=== PATIENT | female | born 1995 | race Caucasian/White ===

== ENCOUNTER 2018-06-10 13:06 | Outpatient (CLI) | payer OTHER, MEDICAID ==
[~2018-06-10] VITALS: Ht 154.9 cm; Wt 54.6 kg
[2018-06-10 13:15] VITALS: BP 116/60; Ht 154.9 cm; Wt 54.6 kg
[2018-06-10 13:16] VITALS: BP 116/60
[2018-06-10] MEDS ORDERED: PREN1TAB71 PO (13:18)
--- NOTE | 2018-06-10 22:08 | QN ---
Documentation Comment 22 years old -0-0-1 with single intrauterine at 33 weeks and 4 days complaining of decreased movement. She denies nausea, vomiting, shortness of breath, chest pain, headache, visual changes, vaginal bleeding or LOF. -FHR: No sign of metabolic acidosis- Category I -Contractions: None -Ultrasound performed: MARBELLA 7.2, BPP 8 out of 8 -Follow-up in 3 days with NST and MARBELLA -Symptoms and sign of labor, preeclampsia, kick count discussed with patient, she voiced understanding. All of her questions answered. -Patient was discharged home in stable condition with the appropriate discharge instructions provided. I would like patient to have close follow-up with her [facility] physician or outpatient clinic in 1-2 days or return to triage for worsening symptoms or any other urgent concerns. DARIO MCFADDEN Jun 10, 2018 22:07
== END 2018-06-10 15:50 | disposition home or self-care (01) ==
LOC: L-D 13:06 → OBT 13:06
PROVIDERS: ATTEND Obstetrics & Gynecology
DX: O36.8130 Decreased fetal movements, third trimester, not applicable or unspecified (principal); Z3A.33 33 weeks gestation of pregnancy
CPT/HCPCS: 76818; G0463

== ENCOUNTER 2018-06-12 12:32 | Outpatient (CLI) | payer OTHER, MEDICAID ==
[~2018-06-12] VITALS: Ht 154.9 cm; Wt 54.2 kg
[~2018-06-12 12:32] MED LIST: PREN1TAB71 PO
[2018-06-12 13:15] VITALS: BP 100/59; PULSE 79; Ht 154.9 cm; Wt 54.2 kg
--- NOTE | 2018-06-12 18:45 | TRIAGE ---
OB Triage Datetime Report Generated by CPN: 06/12/2018 18:45 Datetime: 06/12/2018 14:39 Stage of : OB Triage Datetime: 06/12/2018 14:13 Labor Evaluation Frequency: 0 Monitor Mode: External Pattern: Normal: <= 5 Contractions in 10 Minutes Resting Tone [place]: Relaxed Heart Rate FHR Baseline Rate: 135 Monitor Mode: External US Variability: Moderate 6-25 bpm Accelerations: 10X10 Decelerations: None Category: Category I Pain Assessment Pain Scale: 4 Pain Presence: Intermittent Pain Type: Cramping Pain Location: Perineum Pain Goal: 3 Pain Relief Measures: Comfort Measures Datetime: 06/12/2018 13:25 Stage of : OB Triage Datetime: 06/12/2018 13:08 Stage of : OB Triage Assessment Type: Triage Maternal Assessment Level of Consciousness: Fully Conscious DTR's/Clonus: DTRs 2+; No Clonus Headache: Denies Blurred Vision: No Respiratory Effort: Unlabored; Regular Rhythm; Equal Expansion Breath Sounds, Left: Clear and Equal Breath Sounds, Right: Clear and Equal Nausea/Vomiting: Denies RUQ Epigastric Pain: Denies Facial Edema: None Temperature Route: Axillary Fall Risk Assessment History of Falling: (0) No Secondary Diagnosis: (0) No Ambulatory Aid: (0) Bedrest/Nurse Assist IV Therapy: (0) No Gait: (0) Normal/Bedrest/Immobile Mental Status: (0) Oriented to Own Ability Fall Score: 0 Fall Risk Score Definition: No Risk: No action required Labor Evaluation Frequency: 0 Monitor Mode: External Pattern: Normal: <= 5 Contractions in 10 Minutes Resting Tone [place]: Relaxed Heart Rate FHR Baseline Rate: 140 Monitor Mode: External US Variability: Moderate 6-25 bpm Accelerations: 10X10 Decelerations: None Category: Category I Pain Assessment Pain Scale: 4 Pain Presence: Intermittent Pain Type: Cramping Pain Location: Back; Perineum Pain Goal: 3 Pain Relief Measures: Comfort Measures Datetime: 06/12/2018 13:06 Time of Arrival: 06/12/2018 12:23 EGA: 33.6 Arrived By: Ambulatory Arrived From: Dr. Osoiro Chief Complaint: REFERRED FROM CLINIC FOR DFM, STATES CRAMPING LAST 2 DAYS INTERMITTENTLY, DENIES B LEEDING OR LEAKING. HX OF LOW MARBELLA SEES DR. KIRKPATRICK WEEKLY Movement: Decreased Contractions: Occasional Rupture of Membranes: Denies Vaginal Bleeding: None Vaginal Discharge: Denies Recent Sexual Intercouse: Denies Abdominal Trauma: Not Applicable Patient Complaints: Cramping Time Provider Notified: 06/12/2018 13:25 Provider Notified: SALCEDA Initial Plan: MONITOR, BPP EFW Datetime: 06/10/2018 13:12 Stage of : OB Triage Assessment Type: Triage Time of Arrival: 06/10/2018 12:52 EGA: 33.4 Arrived By: Ambulatory Arrived From: Dr. Osorio Chief Complaint: sent from clinic for dfm Movement: Decreased Contractions: Denies/Absent Rupture of Membranes: Denies Vaginal Bleeding: None Vaginal Discharge: Denies Recent Sexual Intercouse: Denies Abdominal Trauma: Not Applicable Patient Complaints: Other Time Provider Notified: 06/10/2018 15:00 Provider Notified: DR. MEDINA Initial Plan: efm nst bpp Maternal Assessment Level of Consciousness: Fully Conscious DTR's/Clonus: DTRs 2+; No Clonus Headache: Denies Blurred Vision: No Respiratory Effort: Unlabored; Regular Rhythm; Equal Expansion Breath Sounds, Left: Clear and Equal Breath Sounds, Right: Clear and Equal Nausea/Vomiting: Denies RUQ Epigastric Pain: Denies Lower Extremities Edema: None Degree: None Upper Extremities Edema: None Facial Edema: None Temperature Route: Oral Fall Risk Assessment History of Falling: (0) No Secondary Diagnosis: (0) No Ambulatory Aid: (0) Bedrest/Nurse Assist IV Therapy: (0) No Gait: (0) Normal/Bedrest/Immobile Mental Status: (0) Oriented to Own Ability Fall Score: 0 Fall Risk Score Definition: No Risk: No action required Monitor Mode: External Monitor Mode: External US Pain Assessment Pain Scale: 0 Pain Presence: None/Denies
--- NOTE | 2018-07-05 15:19 | PREOPHP ---
DATE OF ADMISSION: 06/12/2018 HISTORY OF PRESENT ILLNESS: This is a 22-year-old lady, 2, para 1, EDC 07/25/2018, at 33 and 6/7 weeks, admitted to labor and delivery area for observation. She was having lower abdominal pain s and low back pains. She had care in my [place] office and the care was uneventfu l. She had 1 previous section. She is for a repeat . PAST PERSONAL HISTORY: No history of diabetes, TB, asthma. ALLERGIES: NO ALLERGIES. SOCIAL HISTORY: The patient does not smoke. She does not drink. MEDICATIONS: She does not take any drugs except her iron and vitamins. GYNECOLOGIC HISTORY: She had menarche at the age of 12, every 28 days interval, 3 to 4 days duration , and moderate in amount. FAMILY HISTORY: Noncontributory. OBSTETRICAL HISTORY: She is 2, para 1. Her first delivery was in 2017 by for sepideh caputo. REVIEW OF SYSTEMS: CARDIOVASCULAR: No chest pains. RESPIRATORY: No cough. GASTROINTESTINAL: No diarrhea. GENITOURINARY: No dysuria. PHYSICAL EXAMINATION: GENERAL: Reveals a conscious, coherent lady and in no acute distress. VITAL SIGNS: Her blood pressure 120/80, pulse rate 80 per minute, respirations 16 per minute. BREASTS, HEART AND LUNGS: Within normal limits. ABDOMEN: Soft. No organomegaly. Fundic height 33 cm. heart tones 140 per minute. PELVIC: Revealed the cervix to be closed, station floating in breech presentation with the bag of wa ter intact. EXTREMITIES: No pedal edema. ADMITTING DIAGNOSES: A 33 and 6/7 weeks intrauterine , rule out labor and breech presentati on, 1 previous section. The patient was observed in the hospital and after a few hours of o bservation, the patient felt good. No contractions and she wanted to go home, so she was discharged home on general diet and activity was restricted. She was counseled. She was instructed. She was t old to come back to the hospital if there is any problem or concern. FINAL DIAGNOSIS: A 33 and 6/7 weeks intrauterine , with 1 previous and dehydratio n in false labor. Dictated By: NAM CHRISTINA/ALDO Conf#: [id number] DID#: [id number]
== END 2018-06-12 14:54 | disposition home or self-care (01) ==
LOC: OBT 12:32 → L-D 12:49 → OBT 14:54
PROVIDERS: ATTEND Obstetrics & Gynecology
DX: O47.03 False labor before 37 completed weeks of gestation, third trimester (principal); Z3A.33 33 weeks gestation of pregnancy
CPT/HCPCS: 76815; 76818; G0463

== ENCOUNTER 2018-06-15 11:31 | Outpatient (CLI) | payer OTHER, MEDICAID ==
[~2018-06-15] VITALS: Ht 154.9 cm; Wt 53.8 kg
[2018-06-15 11:36] VITALS: Ht 154.9 cm; Wt 53.8 kg
--- NOTE | 2018-06-15 12:34 | PN ---
Triage Information Date/Time Reason for visit: Hx of Decreased movments Weeks of Gestation 34+ /Para n/a Diabetes: none Hypertention: none Objective Heart Rate: 140's Contractions: None Disposition: Discharge Assessment/Plan BPP 11/26 +FM Questions answered Fallow up with provider Precautions discussed MICHELLE PHILLIPS M.D. Jun 15, 2018 12:34
== END 2018-06-15 12:30 | disposition home or self-care (01) ==
LOC: L-D 11:31 → OBT 11:31
PROVIDERS: ATTEND Obstetrics & Gynecology
DX: O36.8130 Decreased fetal movements, third trimester, not applicable or unspecified (principal); Z3A.34 34 weeks gestation of pregnancy
CPT/HCPCS: 76818; Z7500; G0463

== ENCOUNTER 2018-06-18 09:03 | Inpatient (IN) | payer OTHER, MEDICAID ==
[~2018-06-18] VITALS: Ht 154.9 cm; Wt 55.0 kg
[2018-06-18 11:04] VITALS: Ht 154.9 cm; Wt 55.0 kg
[2018-06-18] MEDS: BETAMET NA PHOS/AC(6 MG/ML) 2 ML INJ SYG IM SCH (14:14)
[2018-06-18] MEDS: LACTATED RINGER'S 1,000 ML IV SCH ×2 (14:14→18:32)
[2018-06-19] MEDS: LACTATED RINGER'S 1,000 ML IV SCH ×3 (02:48→21:17)
[2018-06-19] MEDS: BETAMET NA PHOS/AC(6 MG/ML) 2 ML INJ SYG IM SCH (12:16)
[2018-06-19] MEDS: PRENATAL VITAMIN PO SCH (12:16)
[2018-06-20] MEDS: LACTATED RINGER'S 1,000 ML IV SCH (04:47)
[2018-06-20] MEDS: PRENATAL VITAMIN PO SCH (08:55)
--- NOTE | 2018-06-21 20:45 | PREOPHP ---
DATE OF ADMISSION: 06/18/2018 HISTORY OF PRESENT ILLNESS: This is a 22-year-old lady, 2, para 1, EDC 07/25/2018 at 34 and 5/7 weeks , admitted to labor and delivery area. The perinatologist, Dr. Cervantes for IV hydration. She had an NST done in his office and the MARBELLA was 6.1, so he advised the patient to be admitted for IV hydration to be given betamethasone, and after 48 hours from admission, which is 24 hours after the last betamethasone is given, to repeat her MRABELLA. She was having NST done in his office due to borderline oligohydramnios before. PAST MEDICAL HISTORY: Patient has a history of a uterine septum. PAST SURGICAL HISTORY: She has a history of previous placental abruption. PAST PERSONAL HISTORY: No history of TB, asthma, nor allergy. SOCIAL HISTORY: Patient does not smoke. She does not drink. MEDICATIONS: She does not take any drugs except her iron and vitamins. GYNECOLOGIC HISTORY: She had menarche at the age of 12, every 28 days interval, 3 to 4 days duration, and moderate in amount. FAMILY HISTORY: Noncontributory. She is 2, para 1. Her first delivery was in 2017 by , for breech and abruptio placenta. REVIEW OF SYSTEMS: CARDIOVASCULAR: No chest pains. RESPIRATORY: No cough. GASTROINTESTINAL: No diarrhea, no vomiting. GENITOURINARY: No dysuria. PHYSICAL EXAMINATION: GENERAL: Reveals a conscious, coherent lady and in not acute distress. VITAL SIGNS: Her blood pressure 120/80, pulse rate 80 per minute, respirations 16 per minute. BREASTS, HEART AND LUNGS: Within normal limits. ABDOMEN: Soft. Fundic height 33 cm. heart tones 140 per minute. PELVIC: Revealed the cervix to be closed. EXTREMITIES: No pedal edema. ADMITTING DIAGNOSIS: A 34 and 5/7 weeks intrauterine with borderline oligohydramnios. PLAN: The patient was planned to have the above to have IV hydration to be given betamethasone, and after the 24 hours after the last dose of betamethasone, the MARBELLA was to be repeated as the plans were explained to the patient and she understood everything totally. The risks, benefits and alternatives were discussed with her as well. Dictated By: NAM CHRISTINA/ALDO Conf#: [id number] [facility]#: [id number] MTDD
--- NOTE | 2018-06-21 21:05 | PN ---
DATE: 06/19/2018 SUBJECTIVE: The patient feels good. No contractions, no complaints. OBJECTIVE: VITAL SIGNS: Afebrile. Vital signs stable. ABDOMEN: Soft. heart tones normal. No vaginal bleeding. EXTREMITIES: No calf tenderness. ASSESSMENT: A 34 and 6/7 weeks intrauterine with borderline oligohydramnios. PLAN: The patient was planned to have a repeat MARBELLA tomorrow. The plans were explained to the patien t and she understood everything totally. Dictated By: NAM CHRISTINA/NTS Conf#: [id number] DID#: [id number]
--- NOTE | 2018-06-21 21:16 | DS ---
DATE OF ADMISSION: 06/18/2018 DATE OF DISCHARGE: 06/20/2018 HISTORY OF PRESENT ILLNESS: See dictated history and physical. PHYSICAL EXAMINATION: See dictated history and physical. ADMITTING DIAGNOSIS: A 34 and 5/7 weeks intrauterine with borderline oligohydramnios. HOSPITAL COURSE: The patient was planned to have IV hydration for 48 hours and to be given betamethasone on admission and to be repeated in 24 hours, which was done, and the patient did well during the observation. heart tones was normal, and on 06/20/2018, she has done on the repeat ultrasound and the MARBELLA was 8.2. So, she was discharged home in good and stable condition and general diet and activity was restricted. She was counseled. She was instructed. She was told to keep appointment to see Dr. Cervantes. FINAL DIAGNOSIS: A 35 weeks IUP with borderline oligohydramnios. Dictated By: NAM CHRISTINA/ALDO Conf#: [id number] DID#: [id number] NEERAJ
== END 2018-06-20 10:40 | disposition home or self-care (01) | DRG 833 ==
LOC: PP1 09:03
PROVIDERS: ADMIT Obstetrics & Gynecology; ATTEND Obstetrics & Gynecology
DX: O41.8X30 Other specified disorders of amniotic fluid and membranes, third trimester, not applicable or unspecified (principal); Z3A.34 34 weeks gestation of pregnancy
CPT/HCPCS: 76815; 80053; 85025; J0702; J7120

== ENCOUNTER 2018-06-21 18:26 | Inpatient (IN) | payer OTHER, MEDICAID ==
[~2018-06-21] VITALS: Ht 154.9 cm; Wt 56.2 kg
[2018-06-21 18:37] VITALS: Ht 154.9 cm; Wt 56.2 kg
--- NOTE | 2018-06-21 19:28 | TRIAGE ---
OB Triage Datetime Report Generated by CPN: 06/21/2018 19:27 Datetime: 06/21/2018 18:57 Maternal Assessment Level of Consciousness: Fully Conscious DTR's/Clonus: DTRs 1+ Headache: Denies Blurred Vision: No Respiratory Effort: Unlabored Breath Sounds, Left: Clear and Equal Breath Sounds, Right: Clear and Equal Nausea/Vomiting: Denies RUQ Epigastric Pain: Denies Facial Edema: None Labor Evaluation Frequency: NONE Monitor Mode: External Resting Tone Covel: Relaxed Heart Rate FHR Baseline Rate: 135 Monitor Mode: External US Variability: Moderate 6-25 bpm Accelerations: 15X15 Decelerations: None Category: Category I Pain Assessment Pain Scale: 0 Pain Presence: None/Denies Pain Type: N/A Pain Goal: 3 Vaginal Exam Membrane Status: Intact Datetime: 06/21/2018 18:35 Assessment Type: Triage Maternal Assessment Level of Consciousness: Fully Conscious DTR's/Clonus: DTRs 2+; No Clonus Headache: Denies Blurred Vision: No Respiratory Effort: Unlabored; Regular Rhythm; Equal Expansion Breath Sounds, Left: Clear and Equal Breath Sounds, Right: Clear and Equal Nausea/Vomiting: Denies RUQ Epigastric Pain: Denies Lower Extremities Edema: None Degree: None Upper Extremities Edema: None Degree: None Facial Edema: None Fall Risk Assessment History of Falling: (0) No Secondary Diagnosis: (0) No Ambulatory Aid: (0) Bedrest/Nurse Assist IV Therapy: (0) No Gait: (0) Normal/Bedrest/Immobile Mental Status: (0) Oriented to Own Ability Fall Score: 0 Fall Risk Score Definition: No Risk: No action required Datetime: 06/21/2018 18:16 Time of Arrival: 06/21/2018 18:16 EGA: 35.1 Arrived By: Ambulatory Arrived From: Home Chief Complaint: PT CAME IN TODAY C/O LEAKING FLUID FOR THE PAST HOUR. STATES THAT IS CLEAR AND AMRITA T SHE WAS AT HER BABY SHOWER WHEN THIS HAPPENDED Movement: Present Contractions: Denies/Absent Rupture of Membranes: Unsure Vaginal Bleeding: None Vaginal Discharge: Denies Recent Sexual Intercouse: Denies Abdominal Trauma: Not Applicable Patient Complaints: Other Additional Patient Complaints: NONE Time Provider Notified: 06/21/2018 18:42 Provider Notified: SALCEDA Initial Plan: MONITOR, ROM PLUS, BPP Datetime: 06/20/2018 10:40 Stage of : Antepartum Datetime: 06/20/2018 10:08 Comments: monitors off Datetime: 06/20/2018 10:00 Stage of : Antepartum Labor Evaluation Frequency: 0 Monitor Mode: External Heart Rate FHR Baseline Rate: 125 Monitor Mode: External US Variability: Moderate 6-25 bpm Accelerations: 15X15 Decelerations: None Category: Category I Pain Assessment Pain Scale: 0 Pain Presence: None/Denies Pain Type: N/A Vaginal Exam Membrane Status: Intact Datetime: 06/20/2018 09:00 Labor Evaluation Frequency: 0 Monitor Mode: External Heart Rate FHR Baseline Rate: 130 Monitor Mode: External US Variability: Moderate 6-25 bpm Accelerations: 15X15 Decelerations: None Category: Category I Pain Assessment Pain Scale: 0 Pain Presence: None/Denies Pain Type: N/A Vaginal Exam Membrane Status: Intact Datetime: 06/20/2018 08:08 Assessment Type: Ongoing Assessment Maternal Assessment Level of Consciousness: Fully Conscious DTR's/Clonus: DTRs 2+; No Clonus Headache: Denies Blurred Vision: No Respiratory Effort: Unlabored; Regular Rhythm; Equal Expansion Breath Sounds, Left: Clear and Equal Breath Sounds, Right: Clear and Equal Nausea/Vomiting: Denies RUQ Epigastric Pain: Denies Lower Extremities Edema: None Degree: None Upper Extremities Edema: None Degree: None Facial Edema: None Fall Risk Assessment History of Falling: (0) No Secondary Diagnosis: (0) No Ambulatory Aid: (0) Bedrest/Nurse Assist IV Therapy: (20) Yes Gait: (0) Normal/Bedrest/Immobile Mental Status: (0) Oriented to Own Ability Fall Score: 20 Fall Risk Score Definition: No Risk: No action required Datetime: 06/20/2018 08:07 Stage of : Antepartum Temperature Route: Oral Datetime: 06/20/2018 08:00 Monitor Mode: External Resting Tone Covel: Relaxed Heart Rate FHR Baseline Rate: 130 Monitor Mode: External US Variability: Moderate 6-25 bpm Accelerations: 15X15 Decelerations: None Category: Category I Pain Assessment Pain Scale: 0 Pain Presence: None/Denies Pain Type: N/A Vaginal Exam Membrane Status: Intact Datetime: 06/20/2018 06:56 Labor Evaluation Frequency: 0 Monitor Mode: External Resting Tone Covel: Relaxed Heart Rate FHR Baseline Rate: 135 Monitor Mode: External US Variability: Moderate 6-25 bpm Accelerations: 15X15 Decelerations: None Category: Category I Datetime: 06/20/2018 06:00 Labor Evaluation Frequency: 0 Monitor Mode: External Resting Tone Covel: Relaxed Heart Rate FHR Baseline Rate: 130 Monitor Mode: External US Variability: Moderate 6-25 bpm Accelerations: 15X15 Decelerations: None Category: Category I Pain Presence: None/Denies Datetime: 06/20/2018 05:00 Labor Evaluation Frequency: occasional Monitor Mode: External Duration (sec)2399: 50-70 Quality: Mild Resting Tone Covel: Relaxed Heart Rate FHR Baseline Rate: 135 Monitor Mode: External US Variability: Moderate 6-25 bpm Accelerations: 15X15 Decelerations: None Category: Category I Pain Presence: None/Denies Datetime: 06/20/2018 04:00 Labor Evaluation Frequency: 0 Monitor Mode: External Resting Tone Covel: Relaxed Heart Rate FHR Baseline Rate: 125 Monitor Mode: External US Variability: Moderate 6-25 bpm Accelerations: 15X15 Decelerations: None Category: Category I Datetime: 06/20/2018 03:00 Labor Evaluation Frequency: 0 Monitor Mode: External Resting Tone Covel: Relaxed Heart Rate FHR Baseline Rate: 125 Monitor Mode: External US Variability: Moderate 6-25 bpm Accelerations: 15X15 Decelerations: Variable Category: Category II Datetime: 06/20/2018 02:49 Monitor Mode: External Datetime: 06/20/2018 02:00 Labor Evaluation Frequency: 0 Monitor Mode: External Resting Tone Covel: Relaxed Heart Rate FHR Baseline Rate: 125 Monitor Mode: External US Variability: Moderate 6-25 bpm Accelerations: 15X15 Decelerations: Variable Category: Category II Datetime: 06/20/2018 01:00 Labor Evaluation Frequency: 0 Monitor Mode: External Duration (sec)2399: denies Resting Tone Covel: Relaxed Heart Rate FHR Baseline Rate: 135 Monitor Mode: External US Variability: Moderate 6-25 bpm Accelerations: 15X15 Decelerations: None Category: Category I Comments: loss of contact at times due to maternal movements. Pain Presence: None/Denies Datetime: 06/20/2018 00:00 Labor Evaluation Frequency: 0 Monitor Mode: External Duration (sec)2399: DENIES Resting Tone Covel: Relaxed Heart Rate FHR Baseline Rate: 125 Monitor Mode: External US Variability: Moderate 6-25 bpm Accelerations: 15X15 Decelerations: None Category: Category I Comments: LOSS OF CONTACT PT WAS IN HER LFT SIDE. Pain Presence: None/Denies Datetime: 06/19/2018 23:00 Labor Evaluation Frequency: 0 Monitor Mode: External Resting Tone Covel: Relaxed Heart Rate FHR Baseline Rate: 130 Monitor Mode: External US Variability: Moderate 6-25 bpm Accelerations: 15X15 Decelerations: None Category: Category I Pain Presence: None/Denies Datetime: 06/19/2018 22:00 Labor Evaluation Frequency: 0 Monitor Mode: External Duration (sec)2399: DENIES Resting Tone Covel: Relaxed Heart Rate FHR Baseline Rate: 130 Monitor Mode: External US Variability: Moderate 6-25 bpm Accelerations: 15X15 Decelerations: None Category: Category I Pain Presence: None/Denies Datetime: 06/19/2018 21:00 Labor Evaluation Frequency: 0 Monitor Mode: External Duration (sec)2399: DENIES Resting Tone Covel: Relaxed Heart Rate FHR Baseline Rate: 130 Monitor Mode: External US Variability: Moderate 6-25 bpm Accelerations: 15X15 Decelerations: None Category: Category I Pain Presence: None/Denies Datetime: 06/19/2018 20:00 Labor Evaluation Frequency: OCCASIONAL Monitor Mode: External Duration (sec)2399: 40-60 Quality: Mild Resting Tone Covel: Relaxed Contraction Comments: ABDOMN SOFT UPON PALPATION,PT DENIES FEELING ANY UC'S. Heart Rate FHR Baseline Rate: 135 Monitor Mode: External US Variability: Moderate 6-25 bpm Accelerations: 15X15 Decelerations: Variable Category: Category II Pain Presence: None/Denies Datetime: 06/19/2018 19:46 Stage of : Antepartum Assessment Type: Ongoing Assessment Maternal Assessment Level of Consciousness: Fully Conscious DTR's/Clonus: DTRs 2+; No Clonus Headache: Denies Blurred Vision: No Respiratory Effort: Unlabored; Regular Rhythm; Equal Expansion Breath Sounds, Left: Clear and Equal Breath Sounds, Right: Clear and Equal Nausea/Vomiting: Denies RUQ Epigastric Pain: Denies Lower Extremities Edema: None Degree: None Upper Extremities Edema: None Degree: None Facial Edema: None Temperature Route: Oral Fall Risk Assessment History of Falling: (0) No Secondary Diagnosis: (0) No Ambulatory Aid: (0) Bedrest/Nurse Assist IV Therapy: (0) No Gait: (0) Normal/Bedrest/Immobile Mental Status: (0) Oriented to Own Ability Fall Score: 0 Fall Risk Score Definition: No Risk: No action required Pain Presence: None/Denies Datetime: 06/19/2018 19:00 Labor Evaluation Frequency: x1 Monitor Mode: External Duration (sec)2399: 50 Quality: Mild Pattern: Normal: <= 5 Contractions in 10 Minutes Resting Tone Covel: Relaxed Heart Rate FHR Baseline Rate: 120 Monitor Mode: External US FHR Baseline Changes: No Baseline Change Variability: Moderate 6-25 bpm Accelerations: 15X15 Decelerations: None Pain Presence: None/Denies Pain Type: N/A Datetime: 06/19/2018 18:00 Labor Evaluation Frequency: xc1 Monitor Mode: External Duration (sec)2399: 50 Quality: Mild Pattern: Normal: <= 5 Contractions in 10 Minutes Resting Tone Covel: Relaxed Heart Rate FHR Baseline Rate: 120 Monitor Mode: External US FHR Baseline Changes: No Baseline Change Variability: Moderate 6-25 bpm Accelerations: 15X15 Decelerations: None Pain Presence: None/Denies Pain Type: N/A Datetime: 06/19/2018 17:55 Stage of : Antepartum Datetime: 06/19/2018 17:00 Labor Evaluation Frequency: x2 Monitor Mode: External Duration (sec)2399: 50 Quality: Mild Pattern: Normal: <= 5 Contractions in 10 Minutes Resting Tone Covel: Relaxed Heart Rate FHR Baseline Rate: 120 Monitor Mode: External US FHR Baseline Changes: No Baseline Change Variability: Moderate 6-25 bpm Accelerations: 15X15 Decelerations: None Pain Presence: None/Denies Pain Type: N/A Datetime: 06/19/2018 16:30 Stage of : Antepartum Datetime: 06/19/2018 16:00 Labor Evaluation Frequency: x2 Monitor Mode: External Duration (sec)2399: 50 Quality: Mild Pattern: Normal: <= 5 Contractions in 10 Minutes Resting Tone Covel: Relaxed Heart Rate FHR Baseline Rate: 125 Monitor Mode: External US FHR Baseline Changes: No Baseline Change Variability: Moderate 6-25 bpm Accelerations: 15X15 Decelerations: None Pain Presence: None/Denies Pain Type: N/A Datetime: 06/19/2018 15:48 Stage of : Antepartum Temperature Route: Oral Datetime: 06/19/2018 15:00 Labor Evaluation Frequency: x2 Monitor Mode: External Duration (sec)2399: 50 Quality: Mild Pattern: Normal: <= 5 Contractions in 10 Minutes Resting Tone Covel: Relaxed Heart Rate FHR Baseline Rate: 125 Monitor Mode: External US FHR Baseline Changes: No Baseline Change Variability: Moderate 6-25 bpm Accelerations: 15X15 Decelerations: None Category: Category I Pain Presence: None/Denies Pain Type: N/A Datetime: 06/19/2018 14:00 Labor Evaluation Frequency: x2 Monitor Mode: External Duration (sec)2399: 50 Quality: Mild Pattern: Normal: <= 5 Contractions in 10 Minutes Resting Tone Covel: Relaxed Heart Rate FHR Baseline Rate: 120 Monitor Mode: External US FHR Baseline Changes: No Baseline Change Variability: Moderate 6-25 bpm Accelerations: 15X15 Decelerations: None Category: Category I Pain Assessment Pain Scale: 0 Pain Presence: None/Denies Pain Type: N/A Datetime: 06/19/2018 13:00 Labor Evaluation Frequency: x3 Monitor Mode: External Duration (sec)2399: 60 Quality: Mild Pattern: Normal: <= 5 Contractions in 10 Minutes Resting Tone Covel: Relaxed Heart Rate FHR Baseline Rate: 130 Monitor Mode: External US FHR Baseline Changes: No Baseline Change Variability: Moderate 6-25 bpm Accelerations: 15X15 Decelerations: None Category: Category I Pain Assessment Pain Scale: 0 Pain Presence: None/Denies Pain Type: N/A Datetime: 06/19/2018 12:00 Labor Evaluation Frequency: x2 Monitor Mode: External Quality: Mild Pattern: Normal: <= 5 Contractions in 10 Minutes Resting Tone Covel: Relaxed Heart Rate FHR Baseline Rate: 125 Monitor Mode: External US FHR Baseline Changes: No Baseline Change Variability: Moderate 6-25 bpm Accelerations: 15X15 Decelerations: None Category: Category I Pain Assessment Pain Scale: 0 Pain Presence: None/Denies Pain Type: N/A Datetime: 06/19/2018 11:00 Labor Evaluation Frequency: 0 Monitor Mode: External Resting Tone Covel: Relaxed Heart Rate FHR Baseline Rate: 130 Monitor Mode: External US FHR Baseline Changes: No Baseline Change Variability: Moderate 6-25 bpm Accelerations: 15X15 Decelerations: None Category: Category I Pain Assessment Pain Scale: 0 Pain Presence: None/Denies Pain Type: N/A Datetime: 06/19/2018 10:00 Stage of : Antepartum Labor Evaluation Frequency: NONE Monitor Mode: External Pattern: Normal: <= 5 Contractions in 10 Minutes Resting Tone Covel: Relaxed Heart Rate FHR Baseline Rate: 130 Monitor Mode: External US FHR Baseline Changes: No Baseline Change Variability: Moderate 6-25 bpm Accelerations: 15X15 Decelerations: None Datetime: 06/19/2018 09:00 Stage of : Antepartum Labor Evaluation Frequency: NONE Monitor Mode: External Pattern: Normal: <= 5 Contractions in 10 Minutes Resting Tone Covel: Relaxed Heart Rate FHR Baseline Rate: 125 Monitor Mode: External US FHR Baseline Changes: No Baseline Change Variability: Moderate 6-25 bpm Accelerations: 15X15 Decelerations: None Datetime: 06/19/2018 08:08 Stage of : Antepartum Temperature Route: Oral Datetime: 06/19/2018 08:00 Stage of : Antepartum Labor Evaluation Frequency: NONE Monitor Mode: External Pattern: Normal: <= 5 Contractions in 10 Minutes Resting Tone Covel: Relaxed Heart Rate FHR Baseline Rate: 130 Monitor Mode: External US FHR Baseline Changes: No Baseline Change Variability: Moderate 6-25 bpm Accelerations: 15X15 Decelerations: None Datetime: 06/19/2018 07:00 Labor Evaluation Frequency: NONE Monitor Mode: External Pattern: Normal: <= 5 Contractions in 10 Minutes Resting Tone Covel: Relaxed Heart Rate FHR Baseline Rate: 130 Monitor Mode: External US FHR Baseline Changes: No Baseline Change Variability: Moderate 6-25 bpm Accelerations: 15X15 Decelerations: None Category: Category I Datetime: 06/19/2018 06:00 Labor Evaluation Frequency: NONE Monitor Mode: External Pattern: Normal: <= 5 Contractions in 10 Minutes Resting Tone Covel: Relaxed Heart Rate FHR Baseline Rate: 125 Monitor Mode: External US FHR Baseline Changes: No Baseline Change Variability: Moderate 6-25 bpm Accelerations: 15X15 Decelerations: None Category: Category I Datetime: 06/19/2018 05:00 Labor Evaluation Frequency: 8/HR Monitor Mode: External Duration (sec)2399: 50-120 Quality: Mild Pattern: Normal: <= 5 Contractions in 10 Minutes Resting Tone Covel: Relaxed Heart Rate FHR Baseline Rate: 120 Monitor Mode: External US FHR Baseline Changes: No Baseline Change Variability: Moderate 6-25 bpm Accelerations: 15X15 Decelerations: None Category: Category I Datetime: 06/19/2018 04:00 Labor Evaluation Frequency: 2/HR Monitor Mode: External Duration (sec)2399: 50 Quality: Mild Pattern: Normal: <= 5 Contractions in 10 Minutes Resting Tone Covel: Relaxed Heart Rate FHR Baseline Rate: 125 Monitor Mode: External US FHR Baseline Changes: No Baseline Change Variability: Moderate 6-25 bpm Accelerations: 15X15 Decelerations: None Category: Category I Datetime: 06/19/2018 03:00 Labor Evaluation Frequency: NONE Monitor Mode: External Pattern: Normal: <= 5 Contractions in 10 Minutes Resting Tone Covel: Relaxed Heart Rate FHR Baseline Rate: 120 Monitor Mode: External US FHR Baseline Changes: No Baseline Change Variability: Moderate 6-25 bpm Accelerations: 15X15 Decelerations: None Category: Category I Datetime: 06/19/2018 02:00 Labor Evaluation Frequency: NONE Monitor Mode: External Pattern: Normal: <= 5 Contractions in 10 Minutes Resting Tone Covel: Relaxed Heart Rate FHR Baseline Rate: 120 Monitor Mode: External US FHR Baseline Changes: No Baseline Change Variability: Moderate 6-25 bpm Accelerations: 15X15 Decelerations: None Category: Category I Datetime: 06/19/2018 01:00 Labor Evaluation Frequency: NONE Monitor Mode: External Pattern: Normal: <= 5 Contractions in 10 Minutes Resting Tone Covel: Relaxed Heart Rate FHR Baseline Rate: 125 Monitor Mode: External US FHR Baseline Changes: No Baseline Change Variability: Moderate 6-25 bpm Accelerations: 15X15 Decelerations: None Category: Category I Datetime: 06/19/2018 00:00 Labor Evaluation Frequency: NONE Monitor Mode: External Pattern: Normal: <= 5 Contractions in 10 Minutes Resting Tone Covel: Relaxed Heart Rate FHR Baseline Rate: 130 Monitor Mode: External US FHR Baseline Changes: No Baseline Change Variability: Moderate 6-25 bpm Accelerations: 15X15 Decelerations: Variable Category: Category II Datetime: 06/18/2018 23:34 Decelerations: Variable Datetime: 06/18/2018 23:00 Labor Evaluation Frequency: NONE Monitor Mode: External Pattern: Normal: <= 5 Contractions in 10 Minutes Resting Tone Covel: Relaxed Heart Rate FHR Baseline Rate: 125 Monitor Mode: External US FHR Baseline Changes: No Baseline Change Variability: Moderate 6-25 bpm Accelerations: 15X15 Decelerations: None Category: Category I Datetime: 06/18/2018 22:00 Labor Evaluation Frequency: NONE Monitor Mode: External Pattern: Normal: <= 5 Contractions in 10 Minutes Resting Tone Covel: Relaxed Heart Rate FHR Baseline Rate: 130 Monitor Mode: External US FHR Baseline Changes: No Baseline Change Variability: Moderate 6-25 bpm Accelerations: 15X15 Decelerations: None Category: Category I Datetime: 06/18/2018 21:00 Labor Evaluation Frequency: NONE Monitor Mode: External Pattern: Normal: <= 5 Contractions in 10 Minutes Resting Tone Covel: Relaxed Heart Rate FHR Baseline Rate: 135 Monitor Mode: External US FHR Baseline Changes: No Baseline Change Variability: Moderate 6-25 bpm Accelerations: 15X15 Decelerations: None Category: Category I Datetime: 06/18/2018 20:04 Assessment Type: Ongoing Assessment Maternal Assessment Level of Consciousness: Fully Conscious Maternal Assessment Level of Consciousness: Fully Conscious Headache: Denies Blurred Vision: No Respiratory Effort: Unlabored; Regular Rhythm; Equal Expansion Nausea/Vomiting: Denies RUQ Epigastric Pain: Denies Lower Extremities Edema: None Degree: None Upper Extremities Edema: None Degree: None Facial Edema: None Fall Risk Assessment History of Falling: (0) No Secondary Diagnosis: (0) No Ambulatory Aid: (0) Bedrest/Nurse Assist IV Therapy: (20) Yes Gait: (0) Normal/Bedrest/Immobile Mental Status: (0) Oriented to Own Ability Fall Score: 20 Fall Risk Score Definition: No Risk: No action required Pain Presence: None/Denies Vaginal Exam Membrane Status: Intact Datetime: 06/18/2018 20:00 Labor Evaluation Frequency: 3/HR Monitor Mode: External Duration (sec)2399: 50-60 Quality: Mild Pattern: Normal: <= 5 Contractions in 10 Minutes Resting Tone Covel: Relaxed Heart Rate FHR Baseline Rate: 135 Monitor Mode: External US FHR Baseline Changes: No Baseline Change Variability: Moderate 6-25 bpm Accelerations: 15X15 Decelerations: None Category: Category I Datetime: 06/18/2018 19:00 Labor Evaluation Frequency: NONE Monitor Mode: External Pattern: Normal: <= 5 Contractions in 10 Minutes Resting Tone Covel: Relaxed Heart Rate FHR Baseline Rate: 130 Monitor Mode: External US FHR Baseline Changes: No Baseline Change Variability: Moderate 6-25 bpm Accelerations: 15X15 Decelerations: None Category: Category I Datetime: 06/18/2018 18:00 Labor Evaluation Frequency: X2 Monitor Mode: External Duration (sec)2399: 60-80 Quality: Mild Pattern: Normal: <= 5 Contractions in 10 Minutes Resting Tone Covel: Relaxed Heart Rate FHR Baseline Rate: 145 Monitor Mode: External US FHR Baseline Changes: No Baseline Change Variability: Moderate 6-25 bpm Accelerations: 15X15 Decelerations: None Category: Category I Datetime: 06/18/2018 17:00 Labor Evaluation Frequency: NONR Monitor Mode: External Pattern: Normal: <= 5 Contractions in 10 Minutes Resting Tone Covel: Relaxed Heart Rate FHR Baseline Rate: 140 Monitor Mode: External US FHR Baseline Changes: No Baseline Change Variability: Moderate 6-25 bpm Accelerations: 15X15 Decelerations: None Category: Category I Datetime: 06/18/2018 16:00 Labor Evaluation Frequency: none Monitor Mode: External Pattern: Normal: <= 5 Contractions in 10 Minutes Resting Tone Covel: Relaxed Heart Rate FHR Baseline Rate: 135 Monitor Mode: External US FHR Baseline Changes: No Baseline Change Variability: Moderate 6-25 bpm Accelerations: 15X15 Decelerations: None Category: Category I Datetime: 06/18/2018 15:00 Labor Evaluation Frequency: none Monitor Mode: Internal Pattern: Normal: <= 5 Contractions in 10 Minutes Resting Tone Covel: Relaxed Heart Rate FHR Baseline Rate: 135 Monitor Mode: External US FHR Baseline Changes: No Baseline Change Variability: Moderate 6-25 bpm Accelerations: 15X15 Decelerations: None Category: Category I Datetime: 06/18/2018 14:00 Labor Evaluation Frequency: none Monitor Mode: External Pattern: Normal: <= 5 Contractions in 10 Minutes Resting Tone Covel: Relaxed Heart Rate FHR Baseline Rate: 135 Monitor Mode: External US FHR Baseline Changes: No Baseline Change Variability: Moderate 6-25 bpm Accelerations: 15X15 Decelerations: None Category: Category I Datetime: 06/18/2018 13:00 Labor Evaluation Frequency: NONE Monitor Mode: External Pattern: Normal: <= 5 Contractions in 10 Minutes Resting Tone Covel: Relaxed Heart Rate FHR Baseline Rate: 140 Monitor Mode: External US FHR Baseline Changes: No Baseline Change Variability: Moderate 6-25 bpm Accelerations: 15X15 Decelerations: None Category: Category I Datetime: 06/18/2018 12:00 Labor Evaluation Frequency: NONE Monitor Mode: External Pattern: Normal: <= 5 Contractions in 10 Minutes Resting Tone Covel: Relaxed Heart Rate FHR Baseline Rate: 145 Monitor Mode: External US FHR Baseline Changes: No Baseline Change Variability: Moderate 6-25 bpm Accelerations: 15X15 Decelerations: None Category: Category I Datetime: 06/18/2018 11:00 Labor Evaluation Frequency: NONE Monitor Mode: External Pattern: Normal: <= 5 Contractions in 10 Minutes Resting Tone Covel: Relaxed Heart Rate FHR Baseline Rate: 145 Monitor Mode: External US FHR Baseline Changes: No Baseline Change Variability: Moderate 6-25 bpm Accelerations: 15X15 Decelerations: None Category: Category I Datetime: 06/18/2018 09:59 Assessment Type: Admission Assessment Vaginal Bleeding: None Maternal Assessment Level of Consciousness: Fully Conscious DTR's/Clonus: DTRs 2+; No Clonus Headache: Denies Blurred Vision: No Respiratory Effort: Unlabored; Regular Rhythm; Equal Expansion Breath Sounds, Left: Clear and Equal Breath Sounds, Right: Clear and Equal Nausea/Vomiting: Denies RUQ Epigastric Pain: Denies Lower Extremities Edema: None Upper Extremities Edema: None Facial Edema: None Fall Risk Assessment History of Falling: (0) No Secondary Diagnosis: (0) No Ambulatory Aid: (0) Bedrest/Nurse Assist IV Therapy: (0) No Gait: (0) Normal/Bedrest/Immobile Mental Status: (0) Oriented to Own Ability Fall Score: 0 Fall Risk Score Definition: No Risk: No action required Pain Assessment Pain Scale: 0 Pain Presence: None/Denies Pain Type: N/A Pain Goal: 2 Vaginal Exam Membrane Status: Intact Datetime: 06/18/2018 09:45 Monitor Mode: External Datetime: 06/18/2018 09:42 Stage of : Antepartum Temperature Route: Oral Datetime: 06/15/2018 12:25 Stage of : OB Triage Maternal Assessment Level of Consciousness: Fully Conscious DTR's/Clonus: DTRs 1+ Headache: Denies Breath Sounds, Left: Clear and Equal Breath Sounds, Right: Clear and Equal Nausea/Vomiting: Denies RUQ Epigastric Pain: Denies Labor Evaluation Frequency: NONE Monitor Mode: External Resting Tone Covel: Relaxed Heart Rate FHR Baseline Rate: 135 Monitor Mode: External US Variability: Moderate 6-25 bpm Accelerations: 15X15 Decelerations: None Category: Category I Pain Assessment Pain Scale: 0 Pain Presence: None/Denies Pain Type: N/A Pain Goal: 3 Vaginal Exam Membrane Status: Intact Datetime: 06/15/2018 11:40 Maternal Assessment Level of Consciousness: Fully Conscious DTR's/Clonus: DTRs 1+ Headache: Denies Blurred Vision: No Respiratory Effort: Unlabored Breath Sounds, Left: Clear and Equal Breath Sounds, Right: Clear and Equal Nausea/Vomiting: Denies RUQ Epigastric Pain: Denies Facial Edema: None Labor Evaluation Frequency: NONE Monitor Mode: External Resting Tone Covel: Relaxed Heart Rate FHR Baseline Rate: 135 Monitor Mode: External US Variability: Moderate 6-25 bpm Accelerations: 15X15 Decelerations: None Category: Category I Pain Assessment Pain Scale: 0 Pain Presence: None/Denies Pain Type: N/A Pain Goal: 3 Vaginal Exam Membrane Status: Intact Datetime: 06/15/2018 11:38 Assessment Type: Triage Maternal Assessment Level of Consciousness: Fully Conscious DTR's/Clonus: DTRs 2+; No Clonus Headache: Denies Blurred Vision: No Respiratory Effort: Unlabored; Regular Rhythm; Equal Expansion Breath Sounds, Left: Clear and Equal Breath Sounds, Right: Clear and Equal Nausea/Vomiting: Denies RUQ Epigastric Pain: Denies Lower Extremities Edema: None Degree: None Upper Extremities Edema: None Degree: None Facial Edema: None Fall Risk Assessment History of Falling: (0) No Secondary Diagnosis: (0) No Ambulatory Aid: (0) Bedrest/Nurse Assist IV Therapy: (0) No Gait: (0) Normal/Bedrest/Immobile Mental Status: (0) Oriented to Own Ability Fall Score: 0 Fall Risk Score Definition: No Risk: No action required Datetime: 06/15/2018 11:28 Time of Arrival: 06/15/2018 11:28 EGA: 34.2 Arrived By: Ambulatory Arrived From: Home Chief Complaint: NST AND BPP FOR DFM Movement: Present Contractions: Denies/Absent Rupture of Membranes: Denies Vaginal Discharge: Denies Recent Sexual Intercouse: Denies Abdominal Trauma: Not Applicable Patient Complaints: None Additional Patient Complaints: NONE Time Provider Notified: 06/15/2018 11:28 Provider Notified: SALCEDA Initial Plan: NST AND BPP Datetime: 06/12/2018 13:08 Fall Score: 0 Fall Risk Score Definition: No Risk: No action required Datetime: 06/12/2018 13:06 EGA: 33.6 Datetime: 06/10/2018 13:12 EGA: 33.4 Fall Score: 0 Fall Risk Score Definition: No Risk: No action required
[2018-06-21] MEDS ORDERED: GUAIFENESIN/CODEINE 5ML CUP PO PRN (22:00)
[2018-06-21] MEDS ORDERED: ACETAMINOPHEN 325 MG TAB PO PRN (22:00)
--- NOTE | 2018-06-21 22:18 | HP ---
Date/Time of Note Date/Time of Note DATE: 06/21/18 TIME: 22:13 OB - History Hx of Present Free Text/Dictation 22-year-old 2 para 1 at 35 weeks and 1 day of gestation with estimated date of delivery July 25, 2018 Patient presents with low amniotic fluid index follow-up She reports positive movement, denies any vaginal bleeding or leaking fluid Estimated Due Date: Jul 25, 2018 : 2 Para: 1 Care: Good Care Obstetrical Complications: Other (Low MARBELLA) Past Family/Social History * Past Medical, Surgical, Family and Obstetric Histories reviewed from chart. OB Admission Exam Physical Exam HEENT: WNL Heart: Rhythm Normal Lungs: Clear, Equal Abdomen: WNL Extremities: Normal Reflexes: Normal Membranes: Intact Heart Rate: 140's Accelerations: Accelerations Present Decelerations: No Decelerations Varibility: Moderate Contractions on Admission: None Last 72 hours Lab Results Rupture of membranes negative PROCEDURE: US Obstetrical , limited CLINICAL INDICATION: Biophysical profile for well being, leaking fluid. TECHNIQUE: Multiple real-time images were acquired of the patient's maternal abdomen utilizing a curved array transducer. COMPARISON: 06/15/2018 FINDINGS: There is a single live intrauterine fetus in a breech presentation. The placenta is implanted laterally to the left and is grade III. There is no placenta previa or abruptio evident. The amniotic fluid index measures 6.2 cm with the deepest pocket measuring 3.5 cm. The heart rate is 148 beats per minute. Biophysical profile: Tone: 2 breathin Gross body movement: 2 Amniotic fluid: 2 Biophysical profile score: 8/8 IMPRESSION: 1. Single live intrauterine fetus, breech presentation, unchanged. The heart rate is 148 bpm. 2. Left lateral placenta, grade III, no previa or abruptio is evident. 3. Amniotic fluid index 6.2 cm with the deepest pocket measuring 3.5 cm. This has worsened from the previous. 4. Biophysical profile score: 8/8, unchanged. Physician Tonya Date Time Electronically viewed and signed by Physician Tonya on 06/21/2018 19:44 RH/ CC: NAM MEDINA MD [phone] PROCEDURE: US Obstetrical, limited CLINICAL INDICATION: Decreased movement TECHNIQUE: Multiple real-time images were acquired of the patient's maternal abdomen utilizing a curved array transducer. COMPARISON: 06/10/2018 FINDINGS: There is a single live intrauterine fetus positioned breech.. The placenta is implanted in the fundus and is grade III. There is no placenta previa or abruptio evident. The heart rate is 137 beats per minute. Measurements: BPD: 8.35 cm, corresponds to a age of 33 weeks 4 days Head circumference: 30.56 cm, corresponds to a age of 34 weeks 0 days Abdominal circumference: 31.22 cm, corresponds to a age of 35 weeks 1 day Femoral length: 0.02 cm, corresponds to a age of 31 weeks 2 days Average age by ultrasound: 33 weeks 4 days plus or minus 2 weeks 2 days Estimated weight: 2290 g plus or minus 344 g. The EFW falls at 42%. IMPRESSION: 1. Single live intrauterine fetus, breech presentation, unchanged. The heart rate is 137 bpm. 2. Fundal placenta, grade III, no previa or abruptio is evident. 4. Estimated age by ultrasound: 33 weeks 4 days plus or minus 2 weeks 2 days. The estimated weight is 2290 g. The EFW falls at 43%. The estimated date of delivery based on today's sonogram is 07/27/2018. Physician Tonya Date Time Electronically viewed and signed by Physician Tonya on 06/12/2018 13:55 RH/ CC: NAM MEDINA MD [id number] OB Assessment/Plan Reason for admission: other (Oligohydramnios) Plan: Expectant Management Other plan: Admit to antepartum IV fluids Repeat biophysical profile in a.m. Copies To: CC: NAM MEDINA MD ; ELIZABETH ULRICH MD June 21, 2018 22:18
[2018-06-21] MEDS: LACTATED RINGER'S 1,000 ML IV SCH (23:00)
[2018-06-22] MEDS: LACTATED RINGER'S 1,000 ML IV SCH ×3 (02:12→18:55)
[2018-06-22] MEDS: CEPASTAT LOZENGE MT PRN ×2 (05:45→09:06)
[2018-06-22] MEDS: GUAIFENESIN/DM 5ML CUP PO PRN ×3 (09:06→18:55)
[2018-06-22] MEDS: FERROUS SULFATE (EC) 325 MG TAB PO SCH (09:09)
[2018-06-22] MEDS: PRENATAL VITAMIN PO SCH (09:09)
[2018-06-22] MEDS: AMOXICILLIN 500 MG CAP PO SCH ×2 (15:57→21:11)
--- NOTE | 2018-06-23 03:07 | CONS ---
DATE OF ADMISSION: 06/21/2018 DATE OF CONSULTATION: 06/22/2018 HISTORY OF PRESENT ILLNESS: The patient is a 22-year-old, G2, P1, currently at 35 weeks and 2 days a nd she presented with complaint of leaking. She had a ROM plus done which is negative. I also asked Love today to check with the Nitrazine and pooling and they were both negative. She has been admi tted before with the low MARBELLA. On 06/10/2018, it was 7; increased to 7.1. On 06/15/2018, it was 9.8. On 06/21/2018, it was 6.2 and on 06/22/2018, it was 7.5. heart tone is reassuring. She is n ot hank. OBSTETRIC HISTORY: Significant for placental abruption at 31 weeks with . PHYSICAL EXAMINATION: VITAL SIGNS: Stable. Physical exam was deferred. LABORATORY VALUES: White count is 4.9. The patient does have . RECOMMENDATIONS: Given the fact that the patient is not ruptured and heart tones were reassuri ng at the time that I talked to Love around 2:30 in the afternoon of 06/22/2018, delivery is not re commended; however, in-house management until white count decreases. I prescribed amoxicillin for th e patient twice a day to be continued for 5 days. Delivery is recommended if her MARBELLA is 5 or less or nonreassuring heart tone, the patient is in labor or at 37 weeks. The patient received betamethasone on her last admission earlier this month. Dictated By: BROOK MARCELO MD ST/NTS Conf#: [id number] DID#: [id number] CC: NAM MEDINA MD;*EndCC*
[2018-06-23] MEDS: LACTATED RINGER'S 1,000 ML IV SCH ×3 (05:24→23:18)
[2018-06-23] MEDS: AMPICILLIN 2 GM/NS (PMX) 100 ML IVPB SCH ×4 (06:21→23:18)
[2018-06-23] MEDS: FERROUS SULFATE (EC) 325 MG TAB PO SCH (08:38)
[2018-06-23] MEDS: PRENATAL VITAMIN PO SCH (08:38)
[2018-06-24] MEDS: LACTATED RINGER'S 1,000 ML IV SCH ×3 (05:46→17:27)
[2018-06-24] MEDS: AMPICILLIN 2 GM/NS (PMX) 100 ML IVPB SCH ×2 (06:14→11:43)
[2018-06-24] MEDS ORDERED: EPHEDrine 25 MG/5 ML SYG ONE (07:00)
[2018-06-24] MEDS ORDERED: OXYTOCIN 30 UNITS/LR 500 ML BAG IV ONE (07:00)
[2018-06-24] MEDS ORDERED: PHENYLephrine (100 MCG/ML) 10ML SYG ONE (07:00)
[2018-06-24] MEDS: PRENATAL VITAMIN PO SCH (08:58)
[2018-06-24] MEDS: FERROUS SULFATE (EC) 325 MG TAB PO SCH (08:58)
[2018-06-24] MEDS ORDERED: OXYTOCIN 30 UNITS/LR 500 ML IV SCH ×2 (12:30→19:49)
[2018-06-24] MEDS ORDERED: ERYTHROMYCIN BASE (DR) 250 MG CAP PO ONE (12:30)
[2018-06-24] MEDS ORDERED: CEFAZOLIN 2 GM/50 ML (PMX) 50 ML IVPB SCH (12:30)
[2018-06-24] MEDS ORDERED: OXYTOCIN 30 UNITS/LR 500 ML IV PRN ×2 (12:30→20:00)
[2018-06-24] MEDS ORDERED: METHYLERGONOVINE 0.2 MG INJ IM PRN ×2 (12:30→20:00)
[2018-06-24] MEDS ORDERED: CARBOPROST 250 MCG INJ IM PRN ×2 (12:30→20:00)
[2018-06-24] MEDS ORDERED: MISOPROSTOL 200 MCG TAB PR PRN ×2 (12:30→20:00)
[2018-06-24] MEDS ORDERED: AZITHROMYCIN 500MG/NS (PMX) 250 ML IVPB STA (17:13)
--- NOTE | 2018-06-24 17:58 | PREOPHP ---
DATE OF ADMISSION: 06/21/2018 HISTORY OF PRESENT ILLNESS: This is a 22-year-old lady, 2, para 1, EDC 07/25/2018 at 35 and 5/7 weeks , admitted to labor and delivery area to rule out leaking bag of water. The patien t has a question if her bag of water ruptured about a few hours prior to admission, so she came for o bservation. The patient was just discharged yesterday for low MARBELLA. Her MARBELLA on 06/20/2018 upon disch arge was 8.8 and 2 days before that it was 6.2. She was given betamethasone and IV hydration then. She does not have any contractions. She had care in my [place] office and the care was uneventful except she was noted to have a uterine septum. This was noted by the perinatologist. The perinatologist has been following her for borderline MARBELLA. She has 1 previous . PAST PERSONAL HISTORY: No history of TB, asthma. ALLERGIES: NO ALLERGIES. SOCIAL HISTORY: The patient does not smoke. She does not drink. MEDICATIONS: She does not take any drugs except her: 1. Iron. 2. Vitamins. GYNECOLOGIC HISTORY: She had menarche at the age of 12, every 28 days interval, 3 to 4 days duration and moderate in amount. FAMILY HISTORY: Noncontributory. OBSTETRIC HISTORY: She is 2, para 1. Her first delivery was in 2017 by for breech and abruption. REVIEW OF SYSTEMS: CARDIOVASCULAR: No chest pain. RESPIRATORY: No cough. GASTROINTESTINAL: No diarrhea, no vomiting. GENITOURINARY: No dysuria. PHYSICAL EXAMINATION: GENERAL: Reveals a conscious, coherent lady and in no acute distress. VITAL SIGNS: Her blood pressure 120/80, pulse rate 80 per minute, respirations 16 per minute. BREASTS, HEART AND LUNGS: Within normal limits. ABDOMEN: Soft. Fundic height 34 cm. heart tones normal. PELVIC: Done by nurse revealed the cervix to be closed and ROM plus was negative. EXTREMITIES: No pedal edema. ADMITTING DIAGNOSIS: A 35 and 5/7 weeks intrauterine , to rule out ruptured bag of water. The patient had an ultrasound done. On admission, the MARBELLA was 6.2 and in breech. The patient was pl anned to be observed in the hospital to rule out rupture. The patient also was coughing. She was giv en cough medication. She was observed for 2 days. On 06/22/2018, her WBC was 16,000. She was still continued to be observed and continued with IV antibiotics. Then on 06/23/2018, WBC was 18,000. Dr Harshad Martin on 06/22/2018, she was consulted and she advised the patient not to be delivered unless she g oes into labor. Then on 06/23/2018 today, Dr. Martin was reconsulted because of her MARBELLA is still 6.2 with an elevated WBC, so she advised the patient to be delivered for possible ruptured bag of water. The patient was scheduled to have . The procedures were explained to the patient and she u nderstood everything totally. The risks, benefits and alternatives were discussed with her as well. Dictated By: NAM CHRISTINA/ALDO Conf#: [id number] DID#: [id number]
--- NOTE | 2018-06-24 18:26 | PREAC ---
Date/Time of Note Date/Time of Note DATE: 06/24/18 TIME: 18:26 Anesthesia Eval and Record Evaluation Time Pre-Procedure Interview DATE: 06/24/18 TIME: 18:26 Age 22 Sex female NPO: 8 hrs Preoperative diagnosis Planned procedure repeat c/s Past Medical History Past Medical History: None Surgery & Anesthesia Issues No known issue Meds Anticoagulation: No Beta Fatmata within 24 hr: No Reason Beta Fatmata not given: Pt. not on B-Fatmata Reported Medications Vit No.130/Iron/FA ( Tablet) 1 Each Tablet, 1 EACH PO 06/10/18 Current Medications Lactated Ringer's 1,000 ml @ 125 mls/hr Q8H IV Last administered on 06/24/18at 17:27; Admin Dose 125 MLS/HR; Start 06/21/18 at 21:46 Prenat Multivit/ [place]/Iron/Folic Ac () 1 tab DAILY PO Last administered on 06/24/18at 08:58; Admin Dose 1 TAB; Start 06/22/18 at 09:00 Ferrous Sulfate (Ferrous Sulfate (Ec)) 325 mg DAILY PO Last administered on 06/24/18 08:58; Admin Dose 325 MG; Start 06/22/18 at 09:00 Acetaminophen (Tylenol Tab) 650 mg Q4H PRN PO .PAIN OR TEMP; Start 06/21/18 at 22:00 Phenol (Cepastat Lozenge) 1 lozenge Q1H PRN MT SORE THROAT Last administered on 06/22/18 09:06; Admin Dose 1 LOZENGE; Start 06/21/18 at 22:00 Guaifenesin/ Dextromethorphan (Robitussin Dm Liquid Cup) 10 ml Q4H PRN PO COUGH Last administered on 06/22/18at 18:55; Admin Dose 10 ML; Start 06/22/18 at 05:30 Ampicillin 100 ml @ 100 mls/hr Q6 IVPB Last administered on 06/24/18at 11:43; Admin Dose 100 MLS/HR; Start 06/23/18 at 06:00 Cefazolin Sodium/ Dextrose 50 ml @ 100 mls/hr ONCE IVPB ; Start 06/24/18 at 12:30 Oxytocin/Lactated Ringer's 500 ml @ 125 mls/hr POST IV ; Start 06/24/18 at 12:30 Oxytocin/Lactated Ringer's 500 ml @ 0 mls/hr ONCE PRN IV .VAGINAL BLEEDING; Start 06/24/18 at 12:30 Methylergonovine Maleate (Methergine) 0.2 mg ONCE PRN IM .VAGINAL BLEEDING; S tart 06/24/18 at 12:30 Carboprost Tromethamine (Hemabate) 250 mcg ONCE PRN IM .VAGINAL BLEEDING; Start 06/24/18 at 12:30 Misoprostol (Cytotec) 1,000 mcg ONCE PRN MT .VAGINAL BLEEDING; Start 06/24/18 at 12:30 Meds reviewed: Yes Allergies Coded Allergies: No Known Allergy (Unverified , 06/21/18) Allergies Reviewed: Yes Labs/Studies Labs Reviewed: Reviewed by anesthesiologist Result Diagram: 06/24/18 0805 Laboratory Tests 06/24/18 08:05 Blood Bank Test 06/24/18 13:14 Antibody Screen NEGATIVE Blood Type O POSITIVE test: Positive Pre-procedure Exam Airway: Adequate mouth opening, Adequate thyromental dist Mallampati: Mallampati II Teeth: Normal Lung: Normal Heart: Normal ASA Physical Status ASA physical status: 2 Emergency: None Planned Anesthetic Neuraxial: Spinal Planned Pain Management Sub-arachniod narcotics Pre-operative Attestations Prior to commencing anesthesia and surgery, the patient was re-evaluated, there was verification of: *The patient's identity *The results of appropriate recent lab work and preoperative vital signs *The above evaluation not changing prior to induction *Anesthetic plan, risk benefits, alternative and complications discussed with patient/family; questions answered; patient/family understands, accepts and wishes to proceed. AQUILES QUINTERO June 24, 2018 18:26
[2018-06-24] MEDS ORDERED: ONDANSETRON 4 MG INJ IV PRN ×2 (18:30)
[2018-06-24] MEDS ORDERED: HYDROmorphONE 1 MG/5 ML IV SYRINGE IV PRN ×2 (18:30)
[2018-06-24] MEDS ORDERED: KETOROLAC 30 MG INJ IV PRN (18:30)
[2018-06-24] MEDS ORDERED: DIPHENHYDRAMINE 50 MG INJ IV PRN ×2 (18:30)
[2018-06-24] MEDS ORDERED: NALOXONE (0.4 MG/ML) INJ IV PRN (18:30)
[2018-06-24] MEDS ORDERED: METOCLOPRAMIDE 10 MG INJ IV PRN (18:30)
[2018-06-24] MEDS ORDERED: FENTAnyl 50 MCG/ML VIAL IV PRN ×2 (18:30)
[2018-06-24] MEDS ORDERED: HYDROmorphONE 0.5 MG/0.5 ML SYG IV PRN ×2 (18:30)
[2018-06-24] MEDS ORDERED: morphine SULFATE/PF (10 MG/10 ML) INJ ONE (18:30)
[2018-06-24] MEDS ORDERED: ALBUTEROL 0.083% (NEB) 2.5 MG/3 ML AMP HHN PRN (18:30)
[2018-06-24] MEDS ORDERED: FENTAnyl 50 MCG/ML VIAL ONE (18:58)
[2018-06-24] MEDS ORDERED: ONDANSETRON 4 MG INJ ONE (19:05)
--- NOTE | 2018-06-24 19:18 | PN ---
DATE: 06/23/2018 SUBJECTIVE: The patient does not have any complaints, less coughing, no discharge. OBJECTIVE VITAL SIGNS: She is afebrile. Vital signs are stable. ABDOMEN: Soft. No tenderness noted. No vaginal bleeding. No fluid coming out from the vagina. EXTREMITIES: No calf tenderness. ASSESSMENT: A 35 and 6/7 weeks intrauterine . Her WBC today was 16,000 and it is increasing. She was started on ampicillin at 2 grams q.6 hours. She was planned to have repeat CBC tomorrow. Dr. Martin was consulted and she advised the same. Dictated By: NAM CHRISTINA/NTS Conf#: [id number] DID#: [id number]
--- NOTE | 2018-06-24 19:19 | PN ---
DATE: 06/22/2018 SUBJECTIVE: The patient feels good, no complaints, but still with coughing. OBJECTIVE VITAL SIGNS: She is afebrile. Vital signs are stable. ABDOMEN: Soft, no tenderness noted. heart tones normal. No leaking noted from the vagina. EXTREMITIES: No calf tenderness. ASSESSMENT: This 35 and 5/7 weeks intrauterine with borderline oligohydramnios and leukocytosis. The p atient was planned to be observed and was given cough syrup. PLAN: To be observed until tomorrow and repeat her MARBELLA. Dictated By: NAM CHRISTINA/NTS Conf#: [id number] DID#: [id number]
--- NOTE | 2018-06-24 19:20 | PN ---
DATE: 06/24/2018 SUBJECTIVE: The patient feels good. No complaints, no watery discharge. OBJECTIVE VITAL SIGNS: She is afebrile. Vital signs stable. ABDOMEN: Soft. No tenderness noted. No leaking noted. ASSESSMENT: 36 weeks intrauterine with previous and a repeat CBC today was 18,[address] Martin was consulted and she advised the patient for delivery for possible ruptured bag of surjit er, so the patient was planned to have today at 6:00. The plans were explained to the luis ent and she understood everything totally. The risks, benefits, and alternatives were discussed with her as well. Dictated By: NAM CHRISTINA/ALDO Conf#: [id number] DID#: [id number]
--- NOTE | 2018-06-24 19:46 | PAC ---
Date/Time of Note Date/Time of Note DATE: 06/24/18 TIME: 19:46 Post-Anesthesia Notes Post-Anesthesia Note Activity: WNL Respiratory function: WNL Cardiovascular function: WNL Mental status: Baseline Pain reasonably controlled: Yes Hydration appropriate: Yes Nausea/Vomiting absent: Yes AQUILES QUINTERO June 24, 2018 19:46
[2018-06-24] MEDS ORDERED: LACTATED RINGER'S 1,000 ML IV SCH (19:49)
--- NOTE | 2018-06-24 19:49 | OPPN ---
Date/Time of Note Date/Time of Note DATE: 06/24/18 TIME: 19:47 Operative Report Planned Procedure Procedure date June 24, 2018 Procedure(s) REPEAT CSECTION Performed by see signature line Blood Bank Order Control Clerk: MARTHA EMERY MD 2nd Blood Bank Order Control Clerk none Pre-procedure diagnosis 36 WEEKS IUP PREVIOUS CSECTION UTERINE SEPTUM [id number] Anesthesia Type: [id number] spinal Post-Procedure Post-procedure diagnosis 36 WEEKS IUP PREVIOS CSECTION UTERINE SEPTUM Findings Live Baby BOY, Apgars 8and 9, [id number] Estimated Blood Loss: 500 - 600 mls Specimen(s) none Grafts/Implant(s) PLACENTA Complication(s) none NAM MEDINA MD June 24, 2018 19:49
[2018-06-24] MEDS ORDERED: LANOLIN HPA 1 PKT TOP PRN (20:00)
[2018-06-24] MEDS ORDERED: METHYLERGONOVINE 0.2 MG TAB PO PRN (20:00)
[2018-06-24] MEDS ORDERED: HYDROCODONE/APAP (5/325) TAB PO PRN (20:00)
[2018-06-24] MEDS: SENNA/DOCUSATE NA (8.6MG/50MG) TAB PO SCH (21:00)
[2018-06-24] MEDS: KETOROLAC 30 MG INJ IV PRN (22:38)
[2018-06-24 23:40] VITALS: BP 108/56; RESP 19
[2018-06-25 04:00] VITALS: BP 95/50; RESP 18
--- NOTE | 2018-06-25 05:23 | OPR ---
DATE OF OPERATION: 06/24/2018 PREOPERATIVE DIAGNOSES: A 36 weeks intrauterine with previous , oligohydramnios, possible prolonged ruptured bag of water, in breech presentation. POSTOPERATIVE DIAGNOSES: A 36 weeks intrauterine with previous , oligohydramnios, possible prolonged ruptured bag of water, in breech presentation. Severe pelvic and abdominal adhes ions. SURGEON: Nam Delgado MD. ULTRASOUND TESTER: Dr. Pressley. ANESTHESIA: Spinal. OPERATION PERFORMED: Repeat low transverse section, plus lysis of adhesions. OPERATIVE TECHNIQUE: Under spinal anesthesia, the patient was prepped and draped in the usual fashio n for abdominal surgery. After checking for the effect of the anesthesia, Pfannenstiel incision, a 1 0 cm skin incision was performed. The incision was carried from the skin up to the fascia. Upon ope dwight the skin up to the fascia, the small blood vessels were noted to be oozing and these were all ca uterized. Fascia was opened transversely followed by splitting the muscles vertically and the perito neum vertically. Upon opening the abdominal cavity, the omentum was noted to be attached to the ante rior parietal peritoneum. All these adhesions were lysed by sharp and blunt dissection. The bladder blade was put in place. A small caryn was performed from the serosa up to the endometrium on the low er uterine segment and the caryn was carried sideways with the aid of my 2 fingers. My left hand was inserted on the lower segment of the uterus and the bag of water was ruptured. Clear fluid was noted . Baby's buttocks were delivered with good fundal pressure, followed by the delivery of the legs of the baby, followed by complete breech extraction without difficulty. Baby's airway was quickly sucti oned with amniotic fluid, cord was clamped and baby was handed to the NICU team. Cord segment was ob tained for blood gases and then cord blood was obtained. The placenta was delivered manually and com plete. The uterus was exteriorized. 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 The small cornua was th e right side and the baby was noted to be on the left side of the uterus. After the placenta was del ivered, there was a septum noted inside the uterus. There was upper fdc of the uterus was divide d with the septum. Then the uterus was cleansed with wet lap sponge to make sure that no membr anes were left behind. After the baby was delivered, there was atony. The uterus was hyp otonic. Uterus was massaged and Methergine and Hemabate was given and the uterus contracted. Then, after correct sponge count, the uterus was closed in the usual fashion using #1 chromic for the first layer, continuous locking suture was used, followed by #1 chromic for the second layer, imbricating sutures were used. Bleeders were checked, and there was no bleeding noted. Then, the uterus was wel l contracted after the uterus was closed. Both tubes and ovaries were healthy looking and the back o f the uterus was checked for any hematoma and there was none noted. Then, the uterus was put back to the pelvic cavity. Once again, uterine incision was checked for any bleeders and there was no bleed ing noted. After correct sponge count, needle count and instrument count as confirmed by the scrub t ech and plate take out worker, the abdomen was closed in the usual fashion using 0 Vicryl for the peritoneum, 0 Vicryl for the muscles. For the fascia, 0 Vicryl. Continuous stitch was used, followed by few figur e-of-eight sutures. For the subcutaneous tissue, it was closed with 3-0 Vicryl and the skin was clos ed with 3-0 Vicryl, subcuticular suture was used. The patient tolerated the procedure well. Estimat ed blood loss about 600 mL. Vital signs were stable during and after the procedure. She delivered a healthy baby boy on 06/24/2018 at 1852 p.m., weighing 6 pounds 18 inches. 8 and 9. 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 Dictated By: NAM CHRISTINA/ALDO Conf#: [id number] DID#: [id number]
[2018-06-25] MEDS: AMPICILLIN 2 GM/NS (PMX) 100 ML IVPB SCH ×2 (06:00→19:28)
[2018-06-25 08:30] VITALS: BP 90/50; PULSE 90; RESP 18
[2018-06-25] MEDS: SENNA/DOCUSATE NA (8.6MG/50MG) TAB PO SCH ×2 (09:55→23:08)
[2018-06-25] MEDS: FERROUS SULFATE (EC) 325 MG TAB PO SCH (09:55)
--- NOTE | 2018-06-25 11:26 | PN ---
DATE: 06/24/2018 LABORATORY VALUES: White count today is 18.4, which has increased from 14.9 despite antibiotics for her cold and initially she had come in with oligohydramnios and she had mentioned some gushing of flu id. However, the test for the rupture of membranes were negative; however, given the fact that the w byron count is increasing and temperatures are close to 99, I do recommend delivery secondary to presu mption of chorioamnionitis. If patient is delivering via , no further antibiotics is necess michael. If vaginal delivery it is then intended to add azithromycin to ampicillin. I spoke to Dr. Kacey kirk and Mai, the nurse. Dictated By: BROOK MCKINNON/ALDO Conf#: [id number] DID#: [id number]
[2018-06-25 12:05] VITALS: BP 100/54; PULSE 94; RESP 16
[2018-06-25] MEDS: PRENATAL VITAMIN PO SCH (15:24)
[2018-06-25] MEDS: KETOROLAC 30 MG INJ IV PRN (15:24)
[2018-06-25 15:41] VITALS: BP 102/62; PULSE 92; RESP 17
[2018-06-25 19:40] VITALS: BP 98/57; PULSE 90; RESP 17
--- NOTE | 2018-06-25 21:26 | PN ---
Date/Time of Note Date/Time of Note DATE: 06/25/18 TIME: 21:24 Assessment/Plan VTE Prophylaxis Risk score (from Ns)>0 risk: 7 SCD applied (from [facility] [place]): No SCD contraindicated: low risk/ambulating Pharmacological prophylaxis: NA/contraindicated Pharm contraindication: low risk/ambulating Lines/Catheters IV C[facility]ter Type (from [facility]): Peripheral IV Assessment/Plan Assessment/Plan POSTCSECTION DAY 1 CHRONIC IRON DEFICIENCY ANEMIA ORDERED ADVANCE DIET TOLERATED CBC ON 3RD POSTOP DAY Result Diagram: 06/25/18 0448 06/25/18 0447 Results 24hrs Laboratory Tests Test 06/25/18 04:47 06/25/18 04:48 Sodium Level 132 L Potassium Level 4.0 Chloride Level 99 Carbon Dioxide Level 27 Anion Gap 6 Blood Urea Nitrogen 5 L Creatinine 0.41 L Est Glomerular Filtrat Rate mL/min > 60 Glucose Level 77 Calcium Level 9.0 White Blood Count 26.3 #H Red Blood Count 2.82 L Hemoglobin 9.1 L Hematocrit 26.9 L Mean Corpuscular Volume 95.4 Mean Corpuscular Hemoglobin 32.3 Mean Corpuscular Hemoglobin Concent 33.8 Red Cell Distribution Width 13.0 Platelet Count 295 Mean Platelet Volume 9.3 Immature Granulocytes % 1.400 H Neutrophils % 83.2 H Lymphocytes % 7.9 L Monocytes % 6.6 Eosinophils % 0.6 Basophils % 0.3 Nucleated Red Blood Cells % 0.0 Immature Granulocytes # 0.370 H Neutrophils # 21.9 H Lymphocytes # 2.1 Monocytes # 1.7 H Eosinophils # 0.2 Basophils # 0.1 Nucleated Red Blood Cells # 0.0 Subjective 24 Hr Interval Summary Free Text/Dictation POST CSECTION DAY 1 COMPLAIN OF INCISIONAL PAINS GOOD URINE OUTPUT PASSING GAS PER RECTUM NO BOWEL MOVEMENT YET Exam/Review of Systems Exam Vitals Vital Signs Date Temp Pulse Resp B/P (MAP) Pulse Ox O2 O2 Flow FiO2 Time Delivery Rate 06/25/18 98.1 90 17 98/57 (71) Room Air 19:40 06/25/18 98 15:41 Intake and Output 06/24/18 06/24/18 06/25/18 1515:00 23:00 07:00 IntakeIntake Total 600 ml 875 ml OutputOutput Total 1785 ml 500 ml BalanceBalance 600 ml -910 ml -500 ml Exam VITAL SIGNS STABLE: YES AFEBRILE: YES BREAST NOT ENGORGED, NON-TENDER, NO APPRECIABLE MASS: YES LUNGS CLEAR, NO RALES, WHEEZES, RHONCHI: YES SINUS RHYTHM WITHOUT MURMUR: YES ABDOMEN: NON-TENDER FUNDUS: BELOW UMBILICUS BOWEL SOUNDS: PRESENT UTERUS: FIRM INCISION (CLEAN, DRY, AND INTACT): YES LOCHIA: LIGHT DEEP TENDON REFLEXES: 0 EXTREMITIES: NO CALF TENDERNESS EDEMA SCALE: NONE Results Results 24hrs Laboratory Tests Test 06/25/18 04:47 06/25/18 04:48 Sodium Level 132 L Potassium Level 4.0 Chloride Level 99 Carbon Dioxide Level 27 Anion Gap 6 Blood Urea Nitrogen 5 L Creatinine 0.41 L Est Glomerular Filtrat Rate mL/min > 60 Glucose Level 77 Calcium Level 9.0 White Blood Count 26.3 #H Red Blood Count 2.82 L Hemoglobin 9.1 L Hematocrit 26.9 L Mean Corpuscular Volume 95.4 Mean Corpuscular Hemoglobin 32.3 Mean Corpuscular Hemoglobin Concent 33.8 Red Cell Distribution Width 13.0 Platelet Count 295 Mean Platelet Volume 9.3 Immature Granulocytes % 1.400 H Neutrophils % 83.2 H Lymphocytes % 7.9 L Monocytes % 6.6 Eosinophils % 0.6 Basophils % 0.3 Nucleated Red Blood Cells % 0.0 Immature Granulocytes # 0.370 H Neutrophils # 21.9 H Lymphocytes # 2.1 Monocytes # 1.7 H Eosinophils # 0.2 Basophils # 0.1 Nucleated Red Blood Cells # 0.0 Medications Medication Current Medications Prenat Multivit/ [place] Assistant/Iron/Folic Ac () 1 tab DAILY PO Last administered on 06/25/18at 15:24; Admin Dose 1 TAB; Start 06/22/18 at 09:00 Ferrous Sulfate (Ferrous Sulfate (Ec)) 325 mg DAILY PO Last administered on at 09:55; Admin Dose 325 MG; Start 06/22/18 at 09:00 Acetaminophen (Tylenol Tab) 650 mg Q4H PRN PO .PAIN OR TEMP; Start 06/21/18 at 22:00 Phenol (Cepastat Lozenge) 1 lozenge Q1H PRN MT SORE THROAT Last administered on 06/22/18at 09:06; Admin Dose 1 LOZENGE; Start 06/21/18 at 22:00 Guaifenesin/ Dextromethorphan (Robitussin Dm Liquid Cup) 10 ml Q4H PRN PO COUGH Last administered on 06/22/18 18:55; Admin Dose 10 ML; Start 06/22/18 at 05:30 Ampicillin 100 ml @ 100 mls/hr Q6 IVPB Last administered on 06/24/18 11:43; Admin Dose 100 MLS/HR; Start 06/23/18 at 06:00 Cefazolin Sodium/ Dextrose 50 ml @ 100 mls/hr ONCE IVPB Last administered on 06/25/18 03:59; Admin Dose 100 MLS/HR; Start 06/24/18 at 12:30 Oxytocin/Lactated Ringer's 500 ml @ 125 mls/hr POST IV Last administered on 06/24/18 20:04; Admin Dose 125 MLS/HR; Start 06/24/18 at 12:30 Methylergonovine Maleate (Methergine) 0.2 mg Q6H PRN PO .VAGINAL BLEEDING; Start 06/24/18 at 20:00 Acetaminophen/ Hydrocodone Bitart ([place] (5/325)) 1 tab Q4H PRN PO MODERATE PAIN LEVEL 4-6; Start 06/24/18 at 20:00 Acetaminophen/ Hydrocodone Bitart ([place] (5/325)) 2 tab Q4H PRN PO SEVERE PAIN LEVEL 7-10; Start 06/24/18 at 20:00 Ibuprofen (Motrin) 800 mg Q8 PRN PO MILD PAIN LEVEL 1-3; Start 06/24/18 at 20:00 Simethicone (Mylicon) 160 mg Q8H PRN PO .GAS; Start 06/24/18 at 20:00 Senna/Docusate Sodium (Senokot-S) 1 tab BID PO Last administered on 06/25/18at 09:55; Admin Dose 1 TAB; Start 06/24/18 at 21:00 Lanolin (Lanolin Hpa) 1 applic BEDSIDE MEDICATION PRN TOP .NIPPLES; Start 06/24/18 at 20:00 Diphtheria/ Tetanus/Acell Pertussis (Adacel) 0.5 ml ONCE ONCE IM* ; Start 06/27/18 at 09:00; Stop 06/27/18 at 09:01 Measles/Mumps/ Rubella Vaccine Live (Mmr Ii Vaccine) 0.5 ml ONCE ONCE SC* ; Start 06/27/18 at 09:00; Stop 06/27/18 at 09:01 Oxytocin/Lactated Ringer's 500 ml @ 0 mls/hr ONCE PRN IV .VAGINAL BLEEDING; Start 06/24/18 at 20:00 Methylergonovine Maleate (Methergine) 0.2 mg ONCE PRN IM .VAGINAL BLEEDING; Start 06/24/18 at 20:00 Carboprost Tromethamine (Hemabate) 250 mcg ONCE PRN IM .VAGINAL BLEEDING; Start 06/24/18 at 20:00 Misoprostol (Cytotec) 1,000 mcg ONCE PRN [place] .VAGINAL BLEEDING; Start 06/24/18 at 20:00 NAM MEDINA MD June 25, 2018 21:25
[2018-06-25] MEDS: IBUPROFEN 800 MG TAB PO PRN (21:46)
--- NOTE | 2018-06-26 00:02 | DELSUM ---
Delivery Summary A-C Datetime Report Generated by CPN: 06/26/2018 00:02 DELIVERY PERSONNEL Lodging Manager: [place], May MATERNAL INFORMATION Delivery Anesthesia: Spinal Medications in Delivery: SEE ANESTHESIA RECORD Delivery QBL (ml): 600 Placenta Cultured: Yes Maternal Complications: Other Other Maternal Complications: LOW MARBELLA, ELEV WBC, BICORNUATE UTERUS LABOR SUMMARY EDC: 07/25/2018 00:00 No. Babies in Womb: 1 Attempted: No Labor Anesthesia: None LABOR INFORMATION Reason for Induction: Not Applicable Oxytocin: N/A Group B Beta Strep: Negative Antibiotics # of Doses: 1 Antibiotics Time of Last Dose: 06/24/2018 18:39 Steroids Given: None Reason Steroids Not Administered: Not Applicable MEMBRANES Membranes Rupture Method: Artificial Rupture of Membranes: 06/24/2018 18:51 Length of Rupture (hr): 0.02 Amniotic Fluid Color: Clear Amniotic Fluid Amount: None Amniotic Fluid Odor: None STAGES OF LABOR Stage 3 hr: 0 Stage 3 min: 1 CSECTION DELIVERY Primary Indication: Other Other Primary Indication: PREV C/SECTION Secondary Indication: N/A CSection Urgency: Elective CSection Incidence: Repeat Labor: N/A Elective: N/A CSection Incision: Lower Uterine Transverse BABY A INFORMATION Infant Delivery Date/Time: 06/24/2018 18:52 Method of Delivery: Born in Route : No : N/A Forceps: N/A Vacuum Extraction: N/A Shoulder Dystocia : N/A SHOULDER DYSTOCIA BABY A Infant Delivery Date/Time: 06/24/2018 18:52 PRESENTATION/POSITION BABY A Presentation: Breech Cephalic Presentation: N/A Breech Presentation: Corky PLACENTA INFORMATION BABY A Placenta Delivery Time : 06/24/2018 18:53 Placenta Method of Delivery: Manual Removal Placenta Status: Delivered SCORES BABY A Heart Rate 1 min: >100 bpm Resp Effort 1 min: Good Cry Reflex Irritability 1 min: Cough/Sneeze/Pulls Away Muscle Tone 1 min: Active Motion Color 1 min: Blue/Pale Resuscitation Effort 1 min: Tactile Stimulation SCORE 1 MIN: 8 Heart Rate 5 min: >100 bpm Resp Effort 5 min: Good Cry Reflex Irritability 5 min: Cough/Sneeze/Pulls Away Muscle Tone 5 min: Active Motion Color 5 min: Body [place], Extremit Blue Resuscitation Effort 5 min: Tactile Stimulation SCORE 5 MIN: 9 INFORMATION BABY A Gestational Age at Delivery: 35.4 Gestational Status: Late - 34- 36.6 Weeks Infant Outcome : Liveborn Infant Condition : Stable Sex: Male IDENTIFICATION/MEDS BABY A ID Band Number: [id number] ID Band Location: Right Leg; Left Arm Sensor Applied: Yes Sensor Number: [id number] Sensor Location : Cord Clamp Vitamin K Given : Not Given Erythromycin Given: Not Given WEIGHT/LENGTH BABY A Birthweight (gm): 2735 Weight (lb): 6 Infant Weight (oz): 0 Infant Length (in): 18.00 Infant Length (cm): 45.72 CORD INFORMATION BABY A No. Cord Vessels: 3 Nuchal Cord : N/A Cord Blood Taken: Yes Suction: Mouth; Nose ASSESSMENT BABY A Infant Complications: None Physical Findings at Delivery: Within Normal Limits Infant Respirations: Appears Normal Mobile Patrol Officer/ALS Called : No Infant Care By: THEE/JOSE Transferred To: Remains with Mother
[2018-06-26 03:27] VITALS: BP 93/51; PULSE 77; RESP 17
[2018-06-26] MEDS: IBUPROFEN 800 MG TAB PO PRN ×2 (05:37→21:48)
[2018-06-26 08:00] VITALS: BP 91/54; PULSE 82; RESP 18
[2018-06-26] MEDS: FERROUS SULFATE (EC) 325 MG TAB PO SCH (09:25)
[2018-06-26] MEDS: PRENATAL VITAMIN PO SCH (09:25)
[2018-06-26] MEDS: SENNA/DOCUSATE NA (8.6MG/50MG) TAB PO SCH ×2 (09:26→21:48)
[2018-06-26 15:27] VITALS: BP 118/60; PULSE 95; RESP 18
[2018-06-26] MEDS: HYDROCODONE/APAP (5/325) TAB PO PRN (17:04)
[2018-06-26 20:25] VITALS: BP 107/64; PULSE 86; RESP 17
--- NOTE | 2018-06-26 21:35 | PN ---
Date/Time of Note Date/Time of Note DATE: 06/26/18 TIME: 21:33 Assessment/Plan VTE Prophylaxis Risk score (from Nsg)>0 risk: 0 SCD applied (from Nsg): No SCD contraindicated: low risk/ambulating Pharmacological prophylaxis: NA/contraindicated Pharm contraindication: low risk/ambulating Lines/Catheters IV Catheter Type (from Nrsg): Peripheral IV Assessment/Plan Assessment/Plan POST CSECTION DAY 2 CHRONIC IRON DEFICIENCY ANEMIA HOME TOMORROW CBC TOMORROW COUNSELED INSTRUCTED PRESCRIPTION GIVEN FOR PAIN RETURN TO CLINIC IN 2 WEEKS CALL OFFICE IF THERE IS ANY PROBLEM OR CONCERN CONTINUE WITH VITAMINS OD AND FERROUS SULFATE 325MG PO TID DIET ADVISED Result Diagram: 06/25/18 0448 06/25/18 0447 Subjective 24 Hr Interval Summary Free Text/Dictation POST CSECTION DAY 2 LITTLE BOWEL MOVEMENT GOOD URINE OUTPUT FEELS LESS INCISIONAL PAINS Exam/Review of Systems Exam Vitals Vital Signs Date Temp Pulse Resp B/P (MAP) Pulse Ox O2 O2 Flow FiO2 Time Delivery Rate 06/26/18 98.1 95 18 118/60 Room Air 15:27 (79) 06/25/18 98 15:41 Intake and Output 06/25/18 06/25/18 06/26/18 1515:00 23:00 07:00 IntakeIntake Total 200 ml 1150 ml OutputOutput Total 2600 ml BalanceBalance 200 ml -1450 ml Exam VITAL SIGNS STABLE: YES AFEBRILE: YES BREAST NOT ENGORGED, NON-TENDER, NO APPRECIABLE MASS: YES LUNGS CLEAR, NO RALES, WHEEZES, RHONCHI: YES SINUS RHYTHM WITHOUT MURMUR: YES ABDOMEN: NON-TENDER FUNDUS: BELOW UMBILICUS BOWEL SOUNDS: PRESENT UTERUS: FIRM INCISION (CLEAN, DRY, AND INTACT): YES LOCHIA: LIGHT DEEP TENDON REFLEXES: 0 EXTREMITIES: NO CALF TENDERNESS EDEMA SCALE: NONE Medications Medication Current Medications Prenat Multivit/ Handkerchief Folder/Iron/Folic Ac () 1 tab DAILY PO Last administered on 06/26/18at 09:25; Admin Dose 1 TAB; Start 06/22/18 at 09:00 Ferrous Sulfate (Ferrous Sulfate (Ec)) 325 mg DAILY PO Last administered on 06/26/18at 09:25; Admin Dose 325 MG; Start 06/22/18 at 09:00 Acetaminophen (Tylenol Tab) 650 mg Q4H PRN PO .PAIN OR TEMP; Start 06/21/18 at 22:00 Phenol (Cepastat Lozenge) 1 lozenge Q1H PRN [place] SORE THROAT Last administered on 06/22/18at 09:06; Admin Dose 1 LOZENGE; Start 06/21/18 at 22:00 Guaifenesin/ Dextromethorphan (Robitussin Dm Liquid Cup) 10 ml Q4H PRN PO COUGH Last administered on 06/22/18at 18:55; Admin Dose 10 ML; Start 06/22/18 at 05:30 Methylergonovine Maleate (Methergine) 0.2 mg Q6H PRN PO .VAGINAL BLEEDING; Start 06/24/18 at 20:00 Acetaminophen/ Hydrocodone Bitart ([place] (5/325)) 1 tab Q4H PRN PO MODERATE PAIN LEVEL 4-6 Last administered on 06/26/18at 17:04; Admin Dose 1 TAB; Start 06/24/18 at 20:00 Acetaminophen/ Hydrocodone Bitart ([place] (5/325)) 2 tab Q4H PRN PO SEVERE PAIN LEVEL 7-10; Start 06/24/18 at 20:00 Ibuprofen (Motrin) 800 mg Q8 PRN PO MILD PAIN LEVEL 1-3 Last administered on 06/26/18at 05:37; Admin Dose 800 MG; Start 06/24/18 at 20:00 Simethicone (Mylicon) 160 mg Q8H PRN PO .GAS; Start 06/24/18 at 20:00 Senna/Docusate Sodium (Senokot-S) 1 tab BID PO Last administered on 06/26/18at 09:26; Admin Dose 1 TAB; Start 06/24/18 at 21:00 Lanolin (Lanolin Hpa) 1 applic BEDSIDE MEDICATION PRN TOP .NIPPLES; Start 06/24/18 at 20:00 Diphtheria/ Tetanus/Acell Pertussis (Adacel) 0.5 ml ONCE ONCE IM* ; Start 06/27/18 at 09:00; Stop 06/27/18 at 09:01 Measles/Mumps/ Rubella Vaccine Live (Mmr Ii Vaccine) 0.5 ml ONCE ONCE SC* ; Start 06/27/18 at 09:00; Stop 06/27/18 at 09:01 Oxytocin/Lactated Ringer's 500 ml @ 0 mls/hr ONCE PRN IV .VAGINAL BLEEDING; Start 06/24/18 at 20:00 Methylergonovine Maleate (Methergine) 0.2 mg ONCE PRN IM .VAGINAL BLEEDING; Start 06/24/18 at 20:00 Carboprost Tromethamine (Hemabate) 250 mcg ONCE PRN IM .VAGINAL BLEEDING; Start 06/24/18 at 20:00 Misoprostol (Cytotec) 1,000 mcg ONCE PRN [place] .VAGINAL BLEEDING; Start 06/24/18 at 20:00 NAM MEDINA MD June 26, 2018 21:34
[2018-06-27 03:29] VITALS: BP 92/56; PULSE 17; RESP 17
[2018-06-27] MEDS: IBUPROFEN 800 MG TAB PO PRN ×2 (05:49→13:22)
[2018-06-27] MEDS ORDERED: MAGNESIUM HYDROXIDE 30ML CUP PO ONE ×2 (06:30→10:00)
[2018-06-27] MEDS ORDERED: BISACODYL 10 MG SUPP PR ONE ×2 (06:30→10:00)
[2018-06-27 08:30] VITALS: BP 100/55; PULSE 77; RESP 18
[2018-06-27] MEDS ORDERED: DIPHTH/TET/ACEL PERTUSS (ADULT) 0.5 ML VIAL IM* ONE (09:00)
[2018-06-27] MEDS: SENNA/DOCUSATE NA (8.6MG/50MG) TAB PO SCH (09:00)
[2018-06-27] MEDS ORDERED: MEASLES,MUMPS,RUBELLA VACCINE INJ SC* ONE (09:00)
[2018-06-27] MEDS: PRENATAL VITAMIN PO SCH (09:03)
[2018-06-27] MEDS: FERROUS SULFATE (EC) 325 MG TAB PO SCH (09:03)
[2018-06-27] MEDS: HYDROCODONE/APAP (5/325) TAB PO PRN (13:22)
[2018-06-27 15:46] VITALS: BP 106/65; PULSE 78; RESP 22
--- NOTE | 2018-06-28 16:53 | DELSUM ---
Delivery Summary A-C Datetime Report Generated by CPN: 06/28/2018 16:53 DELIVERY PERSONNEL Centrifugal Separator: Ordona, May MATERNAL INFORMATION Delivery Anesthesia: Spinal Medications in Delivery: SEE ANESTHESIA RECORD Delivery QBL (ml): 600 Placenta Cultured: Yes Maternal Complications: Other Other Maternal Complications: LOW MARBELLA, ELEV WBC, BICORNUATE UTERUS LABOR SUMMARY EDC: 07/25/2018 00:00 No. Babies in Womb: 1 Attempted: No Labor Anesthesia: None LABOR INFORMATION Reason for Induction: Not Applicable Oxytocin: N/A Group B Beta Strep: Negative Antibiotics # of Doses: 1 Antibiotics Time of Last Dose: 06/24/2018 18:39 Steroids Given: None Reason Steroids Not Administered: Not Applicable MEMBRANES Membranes Rupture Method: Artificial Rupture of Membranes: 06/24/2018 18:51 Length of Rupture (hr): 0.02 Amniotic Fluid Color: Clear Amniotic Fluid Amount: None Amniotic Fluid Odor: None STAGES OF LABOR Stage 3 hr: 0 Stage 3 min: 1 CSECTION DELIVERY Primary Indication: Other Other Primary Indication: PREV C/SECTION Secondary Indication: N/A CSection Urgency: Elective CSection Incidence: Repeat Labor: N/A Elective: N/A CSection Incision: Lower Uterine Transverse BABY A INFORMATION Infant Delivery Date/Time: 06/24/2018 18:52 Method of Delivery: Born in Route : No : N/A Forceps: N/A Vacuum Extraction: N/A Shoulder Dystocia : N/A SHOULDER DYSTOCIA BABY A Infant Delivery Date/Time: 06/24/2018 18:52 PRESENTATION/POSITION BABY A Presentation: Breech Cephalic Presentation: N/A Breech Presentation: Corky PLACENTA INFORMATION BABY A Placenta Delivery Time : 06/24/2018 18:53 Placenta Method of Delivery: Manual Removal Placenta Status: Delivered SCORES BABY A Heart Rate 1 min: >100 bpm Resp Effort 1 min: Good Cry Reflex Irritability 1 min: Cough/Sneeze/Pulls Away Muscle Tone 1 min: Active Motion Color 1 min: Blue/Pale Resuscitation Effort 1 min: Tactile Stimulation SCORE 1 MIN: 8 Heart Rate 5 min: >100 bpm Resp Effort 5 min: Good Cry Reflex Irritability 5 min: Cough/Sneeze/Pulls Away Muscle Tone 5 min: Active Motion Color 5 min: Body [place], Extremit Blue Resuscitation Effort 5 min: Tactile Stimulation SCORE 5 MIN: 9 INFORMATION BABY A Gestational Age at Delivery: 35.4 Gestational Status: Late - 34- 36.6 Weeks Infant Outcome : Liveborn Infant Condition : Stable Sex: Male IDENTIFICATION/MEDS BABY A ID Band Number: [id number] ID Band Location: Right Leg; Left Arm Sensor Applied: Yes Sensor Number: [id number] Sensor Location : Cord Clamp Vitamin K Given : Not Given Erythromycin Given: Not Given WEIGHT/LENGTH BABY A Birthweight (gm): 2735 Weight (lb): 6 Infant Weight (oz): 0 Infant Length (in): 18.00 Infant Length (cm): 45.72 CORD INFORMATION BABY A No. Cord Vessels: 3 Nuchal Cord : N/A Cord Blood Taken: Yes Suction: Mouth; Nose ASSESSMENT BABY A Infant Complications: None Physical Findings at Delivery: Within Normal Limits Infant Respirations: Appears Normal Assistant Dean/ALS Called : No Infant Care By: THEE/JOSE Transferred To: Remains with Mother
== END 2018-06-27 16:52 | disposition home or self-care (01) | DRG 786 ==
LOC: OBT 18:26 → L-D 18:28 → OBT 18:42 → L-D 18:42 → PP1 22:58 → L-D 06-24 15:58 → MS1 06-24 23:30 → PP1 06-26 16:49
PROVIDERS: ADMIT Obstetrics & Gynecology; ATTEND Obstetrics & Gynecology
PROC: 10D00Z1 Extraction of Products of Conception, Low, Open Approach (ICD-10-PCS; principal; 2018-06-24 18:00)
DX: O65.5 Obstructed labor due to abnormality of maternal pelvic organs (principal); O60.13X0 Preterm labor second trimester with preterm delivery third trimester, not applicable or unspecified; O41.03X0 Oligohydramnios, third trimester, not applicable or unspecified; O34.211 Maternal care for low transverse scar from previous cesarean delivery; O32.1XX0 Maternal care for breech presentation, not applicable or unspecified; O99.89 Other specified diseases and conditions complicating pregnancy, childbirth and the puerperium; N73.6 Female pelvic peritoneal adhesions (postinfective); Z3A.36 36 weeks gestation of pregnancy; Z37.0 Single live birth
CPT/HCPCS: 36415; 36600; 76815; 76818; 80048; 81003; 82803; 84112; 85025; 85610; 85730; 86592; 86850; 86900; 86901; 87070; 87086; 88307; 99464; G0463; J0290; J0456; J0690; J1885; J2210; J2274; J2370; J2405; J2590; J3010; J7120